=== PATIENT | male | born 1990 | race Caucasian/White ===

== ENCOUNTER 2021-04-18 11:01 | Emergency (ER) | payer OTHER ==
[2021-04-18 11:32] LABS: BASO # 0.03 (0.02-0.10); EOS # 0.08 (0.04-0.40); EOS % 0.9 % (0.0-4.0); HEMATOCRIT 43.8 % (42.0-52.0); HEMOGLOBIN 15.2 g/dL (13.5-18.0); LYMPH# 2.22 (1.50-4.00); MEAN CELL VOLUME 87 fl (78-100); MEAN CORPUSCULAR HEMOGLOBIN 30 pg (27-31); MEAN CORPUSCULAR HGB CONC 35 g/dL (33-37); MEAN PLATELET VOLUME 10.2 fl (7.4-10.4); MONO # 0.91 (0.20-0.80); NEU # 5.74 (1.40-6.50); PLATELET COUNT 204 K/mm3 (130-400); RED BLOOD COUNT 5.02 M/mm3 (4.20-5.60); RED CELL DISTRIBUTION WIDTH 12.1 % (11.5-14.5)
[2021-04-18 11:46] LABS: ALBUMIN 4.4 g/dL (3.5-5.0); POTASSIUM 4.2 mmol/L (3.5-5.1)
[2021-04-18 11:47] LABS: CALCIUM 9.2 mg/dL (8.3-10.5)
[2021-04-18 11:48] LABS: TOTAL PROTEIN 7.1 g/dL (6.4-8.3)
[2021-04-18 11:50] LABS: TOTAL BILIRUBIN 0.8 mg/dL (0.2-1.2)
[2021-04-18 12:27] VITALS: BP 101/80
== END 2021-04-18 12:28 | disposition home or self-care (01) ==
LOC: ED 11:01
PROVIDERS: Family Medicine
DX: T58.91XA Toxic effect of carbon monoxide from unspecified source, accidental (unintentional), initial encounter (principal)